=== PATIENT | male | born 2000 | race Caucasian/White ===

== ENCOUNTER 2022-03-16 14:57 | Emergency (ER) | payer SELFPAY ==
[2022-03-16 15:08] VITALS: BP 159/72; PULSE 106; RESP 18; TEMP 36.5; O2SAT 99; BMI 28.4
[2022-03-16] MEDS: KETOROLAC 30 MG/ML VIAL 15 MG IM (17:00)
[2022-03-16] MEDS: BACITRACIN OINT 0.9 GM PCKT 1 APPLIC TOP (17:00)
[2022-03-16] MEDS: AMOXICILLIN/CLAV 875/125 MG 1 TAB PO (17:02)
[2022-03-16 17:43] VITALS: BP 147/70; PULSE 88; RESP 80; O2SAT 100
--- NOTE | 2022-03-16 20:16 | ED_ITS ---
HPI - Animal Bite <MARY KAY Guardado - Last Filed: 03/16/22 20:25> General Chief Complaint: Animal Bite Stated Complaint: dog bite to thumb Time Seen by Provider: 03/16/22 16:31 Source: patient Mode of arrival: Ambulatory History of Present Illness HPI narrative: This is a 21-year-old male who presents to the emergency department with dog bite wounds to his bilateral thumbs from his own dog who he knows is up-to-date on rabies vaccines. Patient states that he has an old dog that does not see well and a dog that just came out of surgery, the old dog bit the injured dog and he pull them apart, sustaining bite lopez to bilateral thumbs and has approximately 4 or 5 wounds that need suture repair. He is up-to-date on his tetanus, states that he has pain but full range of motion, denies any fingernail injury, denies any recent illness, mobility changes, numbness or tingling. Related Data Previous Rx's Medication Instructions Recorded amoxicillin 875 mg-potassium 1 tab PO BID 7 days #14 tabs 03/16/22 clavulanate 125 mg tablet mupirocin 2 % topical ointment 1 applic topical BID #15 grams 03/16/22 Allergies Allergy/AdvReac Type Severity Reaction Status Date / Time No Known Drug Allergies Allergy Verified 03/16/22 15:14 Review of Systems <MARY KAY Guardado - Last Filed: 03/16/22 20:25> Review of Systems Narrative: Review of systems is negative for acute abnormalities unless otherwise noted in HPI Patient History <MARY KAY Guardado - Last Filed: 03/16/22 20:25> Social History Smoking Status: Current some day smoker Smoking Status: Current some day smoker alcohol intake frequency: holidays/special occasions only Substance Use Type: marijuana Exam <MARY KAY Guardado - Last Filed: 03/16/22 20:25> Narrative Exam Narrative: Reviewed vitals signs and nursing notes. General: cooperative, comfortable, in no acute distress, well groomed MSK: moves all extremities, neurovascularly intact, no weakness, normal tone Skin: brisk capillary refill, without pallor or erythema, multiple small puncture wounds verses lacerations, detailed: laceration to the webbing between his 1st and 2nd digits on the left, approximately 1 cm, to the thumb near the thumb nail approximately 1 cm, without fingernail injury, it did penetrate the eponychium, did not disrupt the nail matrix, puncture wound to the lateral aspect of his left thumb, his right thumb has to lacerations that are approximately 1 cm each without bleeding, normal range of motion, keep patient can touch thumb to pinky bilateral hands, extend and flex fully with resistance to both thumbs in all positions, no range of motion or sensation deficit. Wounds were thoroughly irrigated with normal saline after local infiltration of lidocaine Neuro: normal speech and cognition, A&O x3, ambulatory, clear speech Psych: mental status is grossly normal, congruent mood, normal affect, pleasant and cooperative Initial Vital Signs Initial Vital Signs: Vital Signs Temperature 97.7 F 03/16/22 15:08 Pulse Rate 106 H 03/16/22 15:08 Respiratory Rate 18 03/16/22 15:08 Blood Pressure 159/72 H 03/16/22 15:08 Pulse Oximetry 99 03/16/22 15:08 Oxygen Delivery Method 03/16/22 15:08 <Genie Otero DO - Last Filed: 03/20/22 08:33> Initial Vital Signs Initial Vital Signs: Vital Signs Temperature 97.7 F 03/16/22 15:08 Pulse Rate 106 H 03/16/22 15:08 Respiratory Rate 18 03/16/22 15:08 Blood Pressure 159/72 H 03/16/22 15:08 Pulse Oximetry 99 03/16/22 15:08 Oxygen Delivery Method 03/16/22 15:08 Procedures <MARY KAY Guardado - Last Filed: 03/16/22 20:25> Laceration Repair Laceration 1: Site: hand (Bilateral thumbs and the webbing between the 1st and 2nd digit of the left hand) Side (If applicable): left and right Size (cm): 3 Description: flap and irregular (Superficial tissue was debrided, wounds were thoroughly irrigated with normal saline, no foreign body or deep injuries visible on exam, full range of motion, do not suspect tendon injury) Local Anesthetic: lidocaine 1% Amount of anesthesia used (mL): 3 Pre-repair: wound explored, irrigated extensively, deep structures intact and wound margins revised Skin layer closed with: nylon Skin layer suture size: 5-0 Number of sutures: 12 Technique: simple, interrupted (One figure 8 suture, 1 horizontal mattress suture for tension over the flexor aspect of the thumb) Course <MARY KAY Guardado - Last Filed: 03/16/22 20:25> Orders Ordered: Discontinued Medications Amoxicillin/Clavulanate Potassium (Amoxicillin/Clav 875/125 Mg) 1 tab PO NOW ONE Stop: 03/16/22 16:32 Last Admin: 03/16/22 17:02 Dose: 1 tab Documented By: SAMUEL Bacitracin (Bacitracin Oint 0.9 Gm Pckt) 1 applic TOP NOW ONE Stop: 03/16/22 16:33 Last Admin: 03/16/22 17:00 Dose: 1 applic Documented By: SAMUEL Ketorolac Tromethamine (Ketorolac 30 Mg/Ml Vial) 15 mg IM NOW ONE Stop: 03/16/22 16:32 Last Admin: 03/16/22 17:00 Dose: 15 mg Documented By: SAMUEL Lidocaine HCl (Lidocaine 2% Inj Mdv 20ml) 20 ml INJ INTRA-OP ONE Stop: 03/16/22 16:35 Last Admin: 03/16/22 17:02 Dose: Not Given Documented By: SAMUEL Vital Signs Vital signs: Vital Signs - 8 hr 03/16/22 15:08 03/16/22 17:43 Temperature 97.7 F Pulse Rate 106 H 88 Respiratory Rate 18 80 H Blood Pressure 159/72 H 147/70 H Pulse Oximetry 99 100 Oxygen Delivery Method Room Air Room Air <Genie Otero DO - Last Filed: 03/20/22 08:33> Orders Ordered: Discontinued Medications Amoxicillin/Clavulanate Potassium (Amoxicillin/Clav 875/125 Mg) 1 tab PO NOW ONE Stop: 03/16/22 16:32 Last Admin: 03/16/22 17:02 Dose: 1 tab Documented By: SAMUEL Bacitracin (Bacitracin Oint 0.9 Gm Pckt) 1 applic TOP NOW ONE Stop: 03/16/22 16:33 Last Admin: 03/16/22 17:00 Dose: 1 applic Documented By: SAMUEL Ketorolac Tromethamine (Ketorolac 30 Mg/Ml Vial) 15 mg IM NOW ONE Stop: 03/16/22 16:32 Last Admin: 03/16/22 17:00 Dose: 15 mg Documented By: SAMUEL Lidocaine HCl (Lidocaine 2% Inj Mdv 20ml) 20 ml INJ INTRA-OP ONE Stop: 03/16/22 16:35 Last Admin: 03/16/22 17:02 Dose: Not Given Documented By: SAMUEL Vital Signs Vital signs: Vital Signs - 8 hr 03/16/22 15:08 03/16/22 17:43 Temperature 97.7 F Pulse Rate 106 H 88 Respiratory Rate 18 80 H Blood Pressure 159/72 H 147/70 H Pulse Oximetry 99 100 Oxygen Delivery Method Room Air Room Air MDM - Animal Bite <Candace Monzon, [facility] - Last Filed: 03/16/22 20:25> [place] Narrative Medical decision making narrative: This is a 21-year-old male presents to the emergency department after he broke up a dog fight of his own 2 dogs at home, his dogs are vaccinated against rabies and up-to-date. Patient is up-to-date on his tetanus vaccination, wounds were thoroughly irrigated, examined for foreign body and deep injury and do not have any evidence of these today. Patient has full range of motion and sensation, multiple puncture wounds and small lacerations to his bilateral thumbs, wounds were all repaired with a 5.0 Ethilon suture, good wound approximation, small wounds less than 10 mm were not sutured and allow for drainage. Encouraged topical mupirocin ointment, discussed when to return if he develops erythema and or streaking up his hand, fever chills, or other sign of worse infection. He was given Augmentin and mupirocin ointment, encouraged to follow-up with his PCP or return to the emergency department for suture removal in 7-10 days. Superficial sutures can be removed in 7 days and webbing or flexor surface sutures can removed in 10. Patient is appropriate and amenable to discharge home. Vital signs are stable on repeat examination is unremarkable. Patient has been informed of results. Patient has been given strict return to ER precautions for any new or worsening symptoms. Patient understands to follow up closely with outpatient providers as instructed. Patient understands plan and agrees to discharge home. All questions and concerns answered at this time. Discharge Plan Departure Patient Disposition: Home Clinical Impression: Dog bite Qualifiers: Encounter type: initial encounter Qualified Code(s): W54.0XXA - Bitten by dog, initial encounter Finger laceration Qualifiers: Encounter type: initial encounter Finger: unspecified finger Damage to nail status: without damage Foreign body presence: without foreign body Laterality: unspecified laterality Qualified Code(s): S61.219A - Laceration without foreign body of unspecified finger without damage to nail, initial encounter Instructions: DI for Dog Bite Activity Restrictions/Additional Instructions: *You have been diagnosed with A dog bite with lacerations to your hands. Please keep your sutures covered with Band-Aids or a dressing, apply the topical antibiotic ointment and take this antibiotic twice a day for the next 5 days. Please stay hydrated, use ibuprofen and Tylenol as needed for pain, hope this heals well, sutures can come out in at least 10 days for the deeper ones in the flexor surfaces and 7 days for the superficial ones. I wish you well. Please return for any red streaking up her hand or wrist, worsening pain, or concern for infection. *What to do: *Please continue to take your regular medications as directed. x ] New medication prescriptions sent to your pharmacy: [[facility] ] [ ] New medication written as a paper prescription [ ] No new medications given *Please follow up with your primary care provider in 2-3 days, call for an appointment. Let them know you were seen in the Emergency Department and that we asked that you be seen for follow-up. We will electronically transmit a record of today's note if your PCP is in our system *If you do not have a primary care provider please contact [phone] to establish care with one of the [facility] primary care providers. *Return to Emergency Department if you should have any new, worsening, or concerning symptoms, such as [fever greater than 101F, chills, worsening pain, persistent vomiting or other bothersome symptoms]. Prescriptions: New amoxicillin-pot clavulanate 875-125 mg tablet 1 tab PO BID 7 Days Qty: 14 0RF mupirocin 2 % ointment 1 applic topical BID Qty: 15 0RF Visit Report Forms: Patient Portal/API <Genie Otero DO - Last Filed: 03/20/22 08:33> Cosign ED Attending Twilaature Attestation: I was immediately available in the department for consultation. Documentation has been reviewed.
== END 2022-03-16 17:45 | disposition home or self-care (01) ==
PROVIDERS: Emergency Provider Nurse Practitioner Critical Care Medicine
DX: S61.012A Laceration without foreign body of left thumb without damage to nail, initial encounter (principal); S61.011A Laceration without foreign body of right thumb without damage to nail, initial encounter; W54.0XXA Bitten by dog, initial encounter
CPT/HCPCS: 12042; 96372; 99283; J1885